=== PATIENT | female | born 1985 | race African-American/Black ===

== ENCOUNTER 2018-10-17 17:30 | Emergency (ER) | payer SELFPAY ==
[2018-10-17] MEDS ORDERED: Ibuprofen 800 MG TAB ONE (18:26)
== END 2018-10-17 18:33 | disposition home or self-care (01) ==
LOC: NAV ERS 17:30
DX: S00.83XA Contusion of other part of head, initial encounter (principal); S20.219A Contusion of unspecified front wall of thorax, initial encounter; J45.909 Unspecified asthma, uncomplicated; Z79.51 Long term (current) use of inhaled steroids; Z79.899 Other long term (current) drug therapy; V43.52XA Car driver injured in collision with other type car in traffic accident, initial encounter
CPT/HCPCS: 99283